=== PATIENT | male | born 1985 | race Caucasian/White ===

== ENCOUNTER 2020-08-20 23:38 | Emergency (ER) | payer OTHER, SELFPAY ==
[2020-08-20 23:51] VITALS: BP 167/80; PULSE 92; RESP 20; TEMP 36.4; O2SAT 95; BMI 29.8
[2020-08-21 00:16] LABS: COVID-19 Test Negative (Negative); IDNOW Serial# 9DD0AD1C
--- NOTE | 2020-08-21 00:59 | ED.URI ---
HPI - URI/Sore Throat General Chief Complaint: Upper Respiratory Symptoms Stated Complaint: SOB Time Seen by Provider: 08/21/20 00:31 Source: patient Mode of arrival: ambulatory Limitations: no limitations History of Present Illness HPI Narrative: Patient comes emergency room complaining of shortness of breath, cough for 3 days. Patient states that he has allergies to pollen, he has been having itchy eyes and stuffy nose, Patient states that a neighbor let him an albuterol pump, he has been using it and having good results. Patient states that he has never been diagnosed with asthma. Patient denies fever chills. Patient denies vomiting or diarrhea MD elicited complaint: cough and nasal congestion Related Data Previous Rx's Medication Instructions Recorded albuterol sulfate 2 puff INHALATION Q4-6H PRN #8.5 g 08/21/20 cetirizine [Zyrtec] 10 mg PO DAILY #10 cap 08/21/20 fluticasone propionate [Flonase 1 spray INTRANASAL BID #16 g 08/21/20 Allergy Relief] prednisone 50 mg PO DAILY #4 tab 08/21/20 Allergies Allergy/AdvReac Type Severity Reaction Status Date / Time No Known Allergies Allergy Unverified 12/30/19 15:31 [No Known Allergies*] Review of Systems Review of Systems: Constitutional : No Weight loss, No Fever, No Chills, No Night Sweats, No Fatigue, No Malaise ENT/Mouth : No Hearing loss, No Ear Pain, planing of Nasal Congestion, No Sinus Pain, No Hoarseness, No sore throat, No Rhinorrhea, No Swallowing Difficulty Eyes: No Eye Pain, No Swelling, complaining of itchiness and Redness for the last couple of days, No Foreign Body, No Discharge, No Vision Changes Cardiovascular : No Chest Pain, No SOB, No Dyspnea on Exertion, No Orthopnea, No Edema, No Palpitations Respiratory : Complaining of dry cough, No Sputum, No Wheezing, No Smoke Exposure, complaining of Dyspnea Gastrointestinal : No Nausea, No Vomiting, No Diarrhea, No Constipation, No abdominal Pain, No Hematochezia, No Melena Genitourinary : no irregular bleeding, No Dysuria, No Urinary Frequency, No Hematuria, No Urinary Incontinence, No Urgency, No Flank Pain, No Urinary Flow Changes, No Hesitancy Musculoskeletal : No joint pain, No Myalgias, No Joint Swelling Skin : No Skin Lesions, No rash Neuro : No Weakness, No Numbness, No Paresthesias, No Loss of Consciousness, No Dizziness, No Headache Psych : No Anxiety/Panic, No Depression, No SI/HI/AH/VH, No Social Issues, Heme/Lymph: No Bruising, No Bleeding,No Lymphadenopathy Endocrine : No Polyuria, No Polydipsia, No Temperature Intolerance [facility] Past Medical History Medical History No acute medical problems Social History Social History Advance Directives: No Advance Directives Information Provided: No Physical Exam Vital Signs: Vital Signs: Last Vital Signs Temp 97.6 F 08/20/20 23:51 Pulse 93 08/21/20 01:11 Resp 20 08/20/20 23:51 BP 167/80 H 08/20/20 23:51 Pulse Ox 95 08/20/20 23:51 Body Mass Index 29.8 Appearance: Alert. Oriented X3. No acute distress. Eyes: Pupils equal, round and reactive to light. ENT: Pharynx normal. Nasal congestion Neck: Normal inspection. Neck supple. No lymph nodes noted. No crepitus CVS: Normal heart rate and rhythm. Pulses normal. Normal S1 and S2 Respiratory: No respiratory distress. Breath sounds normal. Loud diffuse wheezing bilaterally, good air movement Abdomen: Soft and nontender. No rigidity. No distention. good BS x4 Skin: Skin warm and dry. Normal skin color. Normal skin turgor. Extremities: No lower extremity edema. No lower extremity edema. No Lacerations. No Rash Neuro: Oriented X 3. No motor deficit. No sensory deficit. Moving all extermities. No slurred speech. Course Course Course Narrative: I discussed with the patient that his allergies are likely triggering an asthma exacerbation. Patient reacted well to her neighbor's albuterol. Patient likely does have asthma. Patient will follow-up with his primary care physician, patient may need pulmonary function tests. In the meantime, patient was giving a breathing treatment in the emergency room, prednisone. After treatment, patient is no longer wheezing, breathing clearly, ready for discharge. Oxygen saturation 96% on room air MDM - URI/Sore Throat Lab Data Labs: Lab Results 08/20/20 Range/Units 23:49 COVID-19 ([facility]) Negative (Negative) COVID-19 Clin Com See Note Discharge Plan Discharge Clinical Impression: Bilateral wheezing, Acute seasonal allergic rhinitis Patient Disposition: Home, Self-Care Instructions: Allergies (ED), Wheezing (ED) Additional Instructions: Please follow-up with your primary care physician tomorrow. If you have any worsening or new symptoms, please return to the emergency room or call 911 Prescriptions: New prednisone 50 mg tablet 50 mg PO DAILY Qty: 4 RF: 0 albuterol sulfate 90 mcg/actuation HFA aerosol inhaler 2 puff inhalation Q4-6H PRN (Reason: shortness of breath or wheezing) Qty: 8.5 RF: 0 Zyrtec 10 mg capsule 10 mg PO DAILY Qty: 10 RF: 0 fluticasone propionate [Flonase Allergy Relief] 50 mcg/actuation spray,suspension 1 spray intranasal BID Qty: 16 RF: 0
[2020-08-21] MEDS: Albuterol Sulfate (0.083%) 2.5 MG/3 ML VIAL.NEB 10 MG INHALE (01:10)
[2020-08-21 01:11] VITALS: PULSE 93; O2SAT 95
[2020-08-21] MEDS: predniSONE 20 MG TABLET 60 MG PO (02:11)
[2020-08-21] MEDS: Benzonatate 100 MG CAPSULE PO (02:11)
== END 2020-08-21 02:17 | disposition home or self-care (01) ==
LOC: HO.ED 08-21 01:37
PROVIDERS: Emergency Provider Emergency Medicine
DX: R06.2 Wheezing (principal); J30.2 Other seasonal allergic rhinitis; Z20.822 Contact with and (suspected) exposure to COVID-19
CPT/HCPCS: 36415; 87635; 94640; 94644; 99283; 99284

== ENCOUNTER 2024-05-25 02:14 | Emergency (ER) | payer BC, SELFPAY ==
--- NOTE | ~2024-05-25 | XR_ITS ---
CLINICAL HISTORY: cough 2 view chest x-ray Comparison: None Findings: Mildly diffuse interstitial opacities with bronchial wall thickening. No significant pleural effusion or pneumothorax. Prominent cardiac silhouette. No acute fracture. IMPRESSION: Findings suggestive of small airways disease versus atypical infection. This document has been electronically signed by: Efra Sepulveda MD on 05/25/2024 02:55:57
[2024-05-25 02:27] VITALS: BP 138/80; PULSE 111; RESP 18; TEMP 37.6; O2SAT 96
[2024-05-25 03:28] LABS: Influenza A PCR POSITIVE (Negative); Influenza B PCR NEGATIVE (Negative); Resp Syncy Virus RNA Qual PCR NEGATIVE (Negative); SARS COV2 PCR INHOUSE NEGATIVE (Negative)
--- NOTE | 2024-05-25 03:55 | ED_ITS ---
HPI - URI/Sore Throat General Chief Complaint: Upper Respiratory Symptoms Stated Complaint: trouble breathing Time Seen by Provider: 05/25/24 03:55 Source: patient Mode of arrival: ambulatory Limitations: no limitations History of Present Illness ED Provider: HPI Narrative: Patient with URI symptoms for last 1 week with no prior history of asthma coughing mostly in the nighttime with wheezing no fever no chills Related Data Previous Rx's ?Medication ?Instructions ?Recorded albuterol sulfate 90 mcg/actuation 2 puff inhalation Q4-6H PRN 08/21/20 aerosol inhaler shortness of breath or wheezing #8.5 grams cetirizine 10 mg capsule (Zyrtec) 10 mg PO DAILY #10 caps 08/21/20 fluticasone propionate 50 1 spray intranasal BID #16 grams 08/21/20 mcg/actuation nasal spray,suspension (Flonase Allergy Relief) prednisone 50 mg tablet 50 mg PO DAILY #4 tabs 08/21/20 albuterol sulfate 90 mcg/actuation 2 puff inhalation Q6H PRN 05/25/24 aerosol inhaler shortness of breath or wheezing #8.5 grams benzonatate 200 mg capsule 200 mg PO TID PRN cough #30 caps 05/25/24 prednisone 20 mg tablet 40 mg (2 x 20 mg) PO DAILY #10 tabs 05/25/24 Allergies Allergy/AdvReac Type Severity Reaction Status Date / Time No Known Allergies Allergy Verified 05/25/24 02:30 [No Known Allergies*] Review of Systems Review of Systems: Yes all other systems are reviewed and are negative PMFSH Past Medical History Medical History No acute medical problems Social History Social History Advance Directives: No Do you have a plan to hurt others: No Plan Physical Exam Vital Signs: Vital Signs: Last Vital Signs Temp 102.0 F H 05/25/24 04:15 Pulse 109 H 05/25/24 04:15 Resp 18 05/25/24 04:15 BP 137/62 05/25/24 04:15 Pulse Ox 96 05/25/24 04:15 O2 Del Method Room Air 05/25/24 04:15 BMI result Body Mass Index 30.0 Appearance: Alert. Oriented X3. No acute distress. Eyes: No pallor or icterus ENT: Pharynx normal. Oral Mucosa moist Neck: Normal inspection. Neck supple. CVS: Normal heart rate and rhythm. Pulses normal. Respiratory: No respiratory distress. Equal air entry bilateral, prolonged expiration with frequent cough Abdomen: Soft and nontender. Bowel sounds are present, no mass palpable, no CVA tenderness Skin: Skin warm and dry. Normal skin color. Normal skin turgor. Extremities: No lower extremity edema. No calf tenderness Neuro: Oriented X 3. No motor deficit. Medications Administered Discontinued Medications Generic Name Dose Route Start Last Admin Trade Name Freq PRN Reason Stop Dose Admin Acetaminophen 650 mg 05/25/24 04:25 05/25/24 04:46 Acetaminophen 325 Mg Tablet PO 05/25/24 04:26 650 mg ONCE ONE Administration Albuterol Sulfate 2 puff 05/25/24 04:11 05/25/24 04:46 Albuterol Sulfate 90 Mcg 8 Gm Inhaler INHALE 05/25/24 04:12 2 puff ONCE ONE Administration Benzonatate 200 mg 05/25/24 04:11 05/25/24 04:46 Benzonatate 100 Mg Capsule PO 05/25/24 04:12 200 mg ONCE ONE Administration Prednisone 40 mg 05/25/24 04:11 05/25/24 04:46 Prednisone 20 Mg Tablet PO 05/25/24 04:12 40 mg ONCE ONE Administration Medical Decision Making Lab Data MDM Lab Attestation statement: I reviewed the patient's lab results. Labs: Lab Results 05/25/24 Range/Units 02:47 Influenza Type A (PCR) POSITIVE A (Negative) Influenza Type B (PCR) NEGATIVE (Negative) RSV RNA Qual (PCR) NEGATIVE (Negative) SARS-CoV-2 RNA (RT-PCR) NEGATIVE (Negative) Discharge Plan Discharge Clinical Impression: Influenza, Bronchitis Patient Disposition: Home, Self-Care Instructions: Influenza (ED), Acute Bronchitis (ED) Additional Instructions: Drink plenty of fluid Use inhaler as advised Prednisone and cough drops as prescribed You have influenza A bronchitis If shortness of breath continues see your PCP/ER Prescriptions: New benzonatate 200 mg capsule 200 mg PO TID PRN (Reason: cough) Qty: 30 0RF prednisone 20 mg tablet 40 mg PO DAILY Qty: 10 0RF albuterol sulfate 90 mcg/actuation HFA aerosol inhaler 2 puff inhalation Q6H PRN (Reason: shortness of breath or wheezing) Qty: 8.5 0RF No Action prednisone 50 mg tablet 50 mg PO DAILY Qty: 4 0RF albuterol sulfate 90 mcg/actuation HFA aerosol inhaler 2 puff inhalation Q4-6H PRN (Reason: shortness of breath or wheezing) Qty: 8.5 0RF Zyrtec 10 mg capsule 10 mg PO DAILY Qty: 10 0RF fluticasone propionate [Flonase Allergy Relief] 50 mcg/actuation spray,suspension 1 spray intranasal BID Qty: 16 0RF Rx Instructions: administer into each nostril Discharge Date/Time: 05/25/24 04:58 Print Language: Tamazight
[2024-05-25 04:15] VITALS: BP 137/62; PULSE 109; RESP 18; TEMP 38.9; O2SAT 96
[2024-05-25] MEDS: Acetaminophen 325 MG TABLET 650 MG PO (04:46)
[2024-05-25] MEDS: predniSONE 20 MG TABLET 40 MG PO (04:46)
[2024-05-25] MEDS: Benzonatate 100 MG CAPSULE 200 MG PO (04:46)
[2024-05-25] MEDS: Albuterol Sulfate 90 MCG 8 GM INHALER 2 PUFF INHALE (04:46)
== END 2024-05-25 04:58 | disposition home or self-care (01) ==
PROVIDERS: Emergency Provider Internal Medicine
DX: J10.1 Influenza due to other identified influenza virus with other respiratory manifestations (principal); J40 Bronchitis, not specified as acute or chronic; R05.9 Cough, unspecified; Z03.818 Encounter for observation for suspected exposure to other biological agents ruled out
CPT/HCPCS: 0241U; 71046; 99283; 99284

== ENCOUNTER → 2024-05-25 02:36 | Outpatient (BNV) | payer OTHER, SELFPAY | PROVIDERS: Visit Provider Radiology Diagnostic Radiology | DX: R05.9 Cough, unspecified (principal) | CPT/HCPCS: 71046 ==